=== PATIENT | male | born 1980 | race Caucasian/White ===

== ENCOUNTER → 2024-01-03 09:08 | Emergency (ER) | payer OTHER, SELFPAY ==
[2024-01-03 09:28] VITALS: BP 125/75
--- NOTE | 2024-01-03 10:11 | ED.GENMED ---
History of Present Illness
General
Chief Complaint: Crisis Evaluation
Source: patient
Exam Limitations: none
Time Seen by Provider: 01/03/24 09:44
History of Present Illness
History of Present Illness:
43-year-old male who presents after he feels like he passed out while on the phone with psychiatrist. He has been struggling with dealing with a divorce. Patient states sometimes he feels well when he tries not to think about it only thinks about
it as upset. His doctor put him on an antianxiety medication that he does not know the name of. He was trying to get treatment for depression today. Patient admits that he briefly had a suicidal thought but states 'nothing I would ever act on'.
He currently feels okay and not suicidal. No chest pain. No shortness of breath. Does state that today he became sweaty when he had this passing out like episode. No palpitations but just felt his whole body was 'pulsatile'.
Past History
Past History
ED Past Medical History: None
ED Past Surgical History: None
Social History
Living: with family
Phy Exam
Physical Exam
Physical Exam:
CONSTITUTIONAL Patient alert and oriented to person, place and time. Well-appearing. Vital signs reviewed.
HEAD atraumatic, normocephalic.
EYES eyelids normal to inspection, Extraocular muscles intact, Conjunctiva normal, Sclera normal.
NECK normal range of motion, Trachea midline, no jugular venous distention.
RESPIRATORY CHEST No respiratory distress noted, Chest expansion equal, Bilateral breath sounds clear.
CARDIOVASCULAR regular rate and rhythm, Heart sounds normal.
BACK normal inspection, no obvious deformities
UPPER EXTREMITY range of motion normal, Motor strength normal, no cyanosis, no edema.
LOWER EXTREMITY range of motion normal, Motor strength normal, no cyanosis, no edema.
NEURO Speech normal, No focal motor deficits, Daniel coma scale 15, Memory normal, Cranial Nerves intact to screening exam.
SKIN skin warm, dry, and normal in color.
Course
Orders/Labs/Results
Orders:
Orders
01/03/24 09:32
1:1 Observation - Suicide/ Violent Behavior As Directed
Crisis Consult Urgent
Reason for Consult: depression, anxiety, SI
01/03/24 09:33
Electrocardiogram (*1) Urgent
Reason for Study: Syncope
EKG- Treatment ONCE
Vital Signs
Initial and Last Documented VS:
Initial Vital Signs
Temp Pulse Resp BP Pulse Ox
98.2 F 87 18 125/75 98
01/03/24 09:28 01/03/24 09:28 01/03/24 09:28 01/03/24 09:28 01/03/24 09:28
Last Documented Vital Signs
Temp Pulse Resp BP Pulse Ox
98.2 F 87 18 125/75 98
01/03/24 09:28 01/03/24 09:28 01/03/24 09:28 01/03/24 09:28 01/03/24 09:28
MDM/Problems Addressed
MDM/Problems Addressed:
Anxiety, depression, near-syncope
*Pulse Oximetry
Patient hypoxic: no
*EKG
Interpreted by ED Provider?: Yes
Interpretation: normal
Rate: normal
Rhythm: sinus
[place]: normal axis
Interval: normal interval
Ischemia: no ischemia
*Airplane Refueler Interpretation
Rate: normal
Interpretation: normal
Rhythm: sinus
*Critical Care Note
Total Time (30-74mins, 75-104mins- exclusive of procedures): Not Applicable
Data Reviewed
Source: patient
Further Testing Considered But Not Given:
Consider labs with patient does not want labs at this point. States it is another phobia he has and is worried it will make his symptoms worse. He does have outpatient labs planned for tomorrow
Patient Management
Escalation/DeEscalation of care consider admission/obs:
Patient is not suicidal. States he would never act on anything like that. I do think he is stable for discharge to crisis. They will evaluate him. He does have an outpatient psychiatrist he was speaking with as well. EKG normal. Okay for
discharge to crisis. Patient does state that he got sweaty and I do suspect this was a vasovagal event while he was speaking to a psychiatrist. Patient states that he agrees and thinks it is all in his head.
ED Attending Note
-
Portions of this chart may have been created with voice recognition software.� Occasional wrong word or��sound alike� substitutions may have occurred due to the inherent limitations of voice recognition software.
Discharge Plan
Departure
Patient Disposition: Home (Routine Discharge)
Date of Disposition: 01/03/24
Time of Disposition: 10:17
Patient with high blood pressure during this ER visit?: No
Discharge Problem:
Anxiety, Depression
Instructions: Depression in adults, Anxiety, Adult (DC), Near Fainting (DC)
Prescriptions:
No Action
tamsulosin 0.4 MG capsule
0.4 mg PO DAILY Qty: 10 0RF
hydrocodone-acetaminophen [Vicodin] 1 EACH tablet
1 ea PO Q6HPRN PRN (Reason: pain) Qty: 15 0RF
amoxicillin-pot clavulanate 875 MG/125 MG tablet
1 tab PO Q12 Qty: 14 0RF
Activity Restrictions/Additional Instructions:
Please go directly to crisis. Return immediately for suicidal thoughts, chest pain, shortness of breath, palpitations, passing out or any other concerns.
Interventions
Interventions:
*Risk Screen - Suicide Last Done: 01/03/24 09:28
*General Assessment Last Done: 01/03/24 09:28
*Neglect/Abuse Screening Last Done: 01/03/24 09:28
ED- Fall Risk Assessment Last Done: 01/03/24 10:14
ED- Cardiac Assessment Last Done: 01/03/24 10:14
ED- Neurological Assessment Last Done: 01/03/24 10:14
ED-Psychological Assessment Last Done: 01/03/24 10:14
Discharge Date and Time
Print Language: ITALIAN
== END | disposition home or self-care (01) ==
LOC: EMR 09:08
PROVIDERS: EMERGENCY PHYSICIAN Emergency Medicine; FAMILY PHYSICIAN Family Medicine
DX: F32.A Depression, unspecified (principal); F41.9 Anxiety disorder, unspecified; Z63.5 Disruption of family by separation and divorce
CPT/HCPCS: 99283; 93005